=== PATIENT | female | born 1985 | race American Indian/Alaskan Native ===

== ENCOUNTER 2021-03-15 07:52 | Emergency (ER) | payer MEDICAID ==
[2021-03-15 08:00] VITALS: BP 115/85
[2021-03-15] MEDS ORDERED: dexAMETHasone 4 MG/ML VIAL IM STA (08:28)
[2021-03-15] MEDS ORDERED: KETOROLAC 60 MG/2 ML INJ IM ONE (08:28)
--- NOTE | 2021-03-15 08:37 | Emergency Department Report ---
ED General Adult HPI - General Chief complaint: High BP Stated complaint: BLOOD PRESSURE Time Seen by Provider: 03/15/21 08:08 Source: patient Mode of arrival: Ambulatory Limitations: No Limitations - History of Present Illness Initial comments: 35-year-old -Northern [place] female patient with history of hypertension presents with complaints of intermittent headaches x1 week and vaginal discharge for the past few days. She states the headache is a 6/10 in severity and that it resolves with ibuprofen however it continues to recur. Patient admits to recently starting phentermine for weight loss and that her headache started the same day. She denies any vision changes, numbness/tingling/weakness in her limbs, difficulty with speech/ambulation, confusion, memory loss, or history of CVA. Headache is not worst headache of her life. Patient reports some vaginal itching along with the discharge and denies dyspareunia. She admits to dysuria without hematuria or urinary frequency. No abnormal vaginal bleeding or abdominal pain per patient. - Related Data Previous Rx's Medication Instructions Recorded Last Taken Type Doxycycline Monohydrate 100 mg PO BID 7 Days #14 capsule 03/15/21 Unknown Rx Fluconazole [Diflucan TAB] 200 mg PO QDAY PRN #1 tablet 03/15/21 Unknown Rx Allergies Allergy/AdvReac Type Severity Reaction Status Date / Time codeine AdvReac Hives Verified 03/15/21 07:57 Penicillins AdvReac Hives Verified 03/15/21 07:57 ED Review of Systems ROS: Stated complaint: BLOOD PRESSURE Other details as noted in HPI Constitutional: denies: chills, fever Cardiovascular: denies: chest pain Gastrointestinal: denies: abdominal pain, nausea, vomiting Genitourinary: dysuria, discharge. denies: urgency, frequency, hematuria, abnormal menses, dyspareunia Skin: denies: change in color Neurological: headache. denies: numbness, paresthesias, abnormal gait ED Past Medical Hx - Medications Home Medications: Home Medications Medication Instructions Recorded Confirmed Last Taken Type Doxycycline Monohydrate 100 mg PO BID 7 Days #14 capsule 03/15/21 Unknown Rx Fluconazole [Diflucan TAB] 200 mg PO QDAY PRN #1 tablet 03/15/21 Unknown Rx ED Physical Exam - General Limitations: No Limitations General appearance: alert, in no apparent distress, obese - Head Head exam: Present: atraumatic, normocephalic - Eye Eye exam: Present: normal appearance - Respiratory Respiratory exam: Present: normal lung sounds bilaterally. Absent: respiratory distress - Cardiovascular Cardiovascular Exam: Present: regular rate, normal rhythm - GI/Abdominal GI/Abdominal exam: Present: soft. Absent: distended, tenderness - External exam: Present: normal external exam Speculum exam: Present: vaginal discharge (Copious, greenish), cervical discharge (Greenish), other (IUD strings noted in cervical os) Bi-manual exam: Absent: cervical motion tendernes (Cervix is friable) - Neurological Exam Neurological exam: Present: alert, oriented X3, CN II-XII intact, normal gait. Absent: motor sensory deficit - Expanded Neurological Exam Expanded Cerebellar function: Finger to Nose: Normal, [place]: Normal Motor strength exam: RUE: 4, LUE: 4, RLE: 4, LLE: 4 Best Eye Response ([place]): (4) open spontaneously Best Motor Response ([place]): (6) obeys commands Best Verbal Response ([place]): (5) oriented [place] Total: 15 - Psychiatric Psychiatric exam: Present: normal affect, normal mood - Skin Skin exam: Present: warm, dry, intact, normal color. Absent: rash ED Course Vital Signs 03/15/21 07:59 Temperature 98.4 F Pulse Rate 98 H Respiratory 18 Rate Blood Pressure 115/85 [Left] O2 Sat by Pulse 100 Oximetry ED Medical Decision Making - Lab Data Lab Results 03/15/21 Range/Units Unknown Urine Color Yu (Yellow) Urine Turbidity Cloudy (Clear) Urine pH 6.0 (5.0-7.0) Ur Specific [place] 1.026 (1.003-1.030) Urine Protein 100 mg/dl (Negative) mg/dL Urine Glucose (UA) Neg (Negative) mg/dL Urine Ketones Neg (Negative) mg/dL Urine Blood Sm (Negative) Urine Nitrite Neg (Negative) Urine Bilirubin Neg (Negative) Urine Urobilinogen 4.0 (<2.0) mg/dL Ur Leukocyte Esterase Lg (Negative) Urine WBC (Auto) > 182.0 H (0.0-6.0) /HPF Urine RBC (Auto) 51.0 (0.0-6.0) /HPF U Epithel Cells (Auto) 53.0 H (0-13.0) /HPF Urine WBC Clumps 2+ /HPF Urine Mucus 3+ /HPF Urine Yeast (Bud[place]) 2+ /HPF Urine HCG, Qual Negative (Negative) - Medical Decision Making 35-year-old -[place] female patient with history of hypertension pr esents with complaints of intermittent headaches x1 week and vaginal discharge for the past few days. She states the headache is a 6/10 in severity and that it resolves with ibuprofen however it continues to recur. Patient admits to recently starting phentermine for weight loss and that her headache started the same day. She denies any vision changes, numbness/tingling/weakness in her limbs, difficulty with speech/ambulation, confusion, memory loss, or history of CVA. Headache is not worst headache of her life. Patient reports some vaginal itching along with the discharge and denies dyspareunia. She admits to dysuria without hematuria or urinary frequency. No abnormal vaginal bleeding or abdominal pain per patient. Headache resolved with meds given here. Neuro exam is normal. Headache likely due to phentermine-patient to follow-up with PCP concerning this. UA shows greater than 182 WBCs. No CMT noted on exam. Wet prep positive for trichomonas. Patient given Flagyl. Will also cover for gonorrhea and chlamydia with Rocephin and doxycycline. Doxycycline also will cover possible UTI. Patient informed to follow-up outpatient with PCP, urgent care, or health department for further STI testing and also to refrain from sexual activity for 2 to 3 weeks. Patient to also inform her partner to get tested and treated. Discussed in detail signs and symptoms that should prompt immediate return to the ED with patient who verbalizes understanding. Critical care attestation.: If time is entered above; I have spent that time in minutes in the direct care of this critically ill patient, excluding procedure time. ED Disposition Clinical Impression: Headache, infection, trichomonal, UTI (urinary tract infection) Disposition: 01 HOME / SELF CARE / HOMELESS Is pt being admited?: No Condition: Stable Instructions: Trichomoniasis, Urinary Tract Infection, Adult, Tension Headache, Adult Prescriptions: Fluconazole [Diflucan TAB] 200 mg PO QDAY PRN #1 tablet PRN Reason: yeast infection Doxycycline Monohydrate 100 mg PO BID 7 Days #14 capsule Referrals: PRIMARY CARE, [Primary Care Provider] - 3-5 Days [facility] [Provider Group] - 3-5 Days ()
[2021-03-15 11:06] LABS: Bilirubin,Urine NEG (Negative); Blood,Urine SM (Negative); Color,Urine Amber (Yellow); Mucus,Urine 3+ /HPF
[2021-03-15 11:07] LABS: WBC,Urine > 182.0 /HPF (0.0-6.0)
[2021-03-15 11:10] LABS: HCG Qualitative,Urine Negative (Negative)
[2021-03-15] MEDS ORDERED: metroNIDAZOLE 500 MG TAB PO ONE (11:12)
[2021-03-15] MEDS ORDERED: LIDOCAINE-MPF (1%) 10 MG/1 ML VIAL 5 ML INFILTRATI ONE (11:16)
== END 2021-03-15 11:30 | disposition home or self-care (01) ==
LOC: ED 07:52
DX: R51.9 Headache, unspecified (principal); N73.9 Female pelvic inflammatory disease, unspecified; A59.9 Trichomoniasis, unspecified; N39.0 Urinary tract infection, site not specified; Z88.0 Allergy status to penicillin; Z88.5 Allergy status to narcotic agent
CPT/HCPCS: 81001; 81025; 87210; 96372; 99284; J0696; J1100; J1885; J3490

== ENCOUNTER 2021-04-03 09:06 | Emergency (ER) | payer MEDICAID ==
[2021-04-03 09:19] VITALS: BP 124/82
[2021-04-03] MEDS ORDERED: BUTALB/ACETAMINOPHEN/CAFFEINE TAB PO ONE (09:29)
--- NOTE | 2021-04-03 09:33 | Emergency Department Report ---
HPI - General Chief Complaint: High BP Time Seen by Provider: 04/03/21 09:23 - HPI HPI: 35-year-old -[place] female presents to the emergency department with complaint of a 5 to 6-day history of a headache. She says that it is bilateral frontal and temporal in location. She also feels like the muscles in the neck and trapezius feel tight, but she denies any actual neck stiffness. Patient says that she has a history of migraines diagnosed about 5 years ago but she is not on any medication for it. Patient was seen here about 3 weeks ago with complaint of intermittent headaches and uncontrolled blood pressure at that time. During that last visit the patient had a refill of her HCTZ and has been taking it compliantly. She does not have a primary care physician and she says that she recently moved to "this [facility]." She has some photophobia, but otherwise denies any vision change. She denies any fever, slurred speech, numbness or paresthesias, focal or lateralizing weakness, chest pain. She denies that this is the worst headache that she has ever had. Currently it is 7 out of 10 in intensity. No known aggravating or alleviating factors. ED Past Medical Hx - Medications Home Medications: Home Medications Medication Instructions Recorded Confirmed Last Taken Type Doxycycline Monohydrate 100 mg PO BID 7 Days #14 capsule 03/15/21 Unknown Rx Fluconazole [Diflucan TAB] 200 mg PO QDAY PRN #1 tablet 03/15/21 Unknown Rx traMADoL [Ultram 50 MG tab] 50 mg PO Q6HR PRN #8 tablet 04/03/21 Unknown Rx ED Review of Systems ROS: Stated complaint: HEADACHE Other details as noted in HPI Comment: All other systems reviewed and negative Constitutional: denies: chills, fever Eyes: other (Photophobia). denies: eye pain, vision change ENT: denies: ear pain, throat pain Respiratory: denies: cough, shortness of breath Cardiovascular: denies: chest pain, palpitations Gastrointestinal: denies: abdominal pain, vomiting Genitourinary: denies: dysuria, discharge Musculoskeletal: denies: back pain, arthralgia Skin: denies: rash, lesions Neurological: headache. denies: weakness, numbness, paresthesias Physical Exam - Physical Exam Vital Signs: Vital Signs 04/03/21 09:14 Temperature 98.1 F Pulse Rate 90 Respiratory 17 Rate Blood Pressure 124/82 O2 Sat by Pulse 99 Oximetry Physical Exam: GENERAL: The patient is well-developed well-nourished. HENT: Normocephalic. Atraumatic. Patient has moist mucous membranes. EYES: Extraocular motions are intact. No nystagmus. NECK: Supple. Trachea is midline. CHEST/LUNGS: Clear to auscultation. There is no respiratory distress noted. HEART/CARDIOVASCULAR: Regular. There is no tachycardia. There is no murmur. ABDOMEN: Abdomen is soft, nontender. Patient has normal bowel sounds. SKIN: Skin is warm and dry. NEURO: The patient is awake, alert, and oriented. The patient is cooperative. The patient has no focal neurologic deficits. Normal speech. Cranial nerves II through XII grossly intact. MUSCULOSKELETAL: There is no tenderness or deformity. There is no limitation range of motion. ED Course Vital Signs 04/03/21 09:14 Temperature 98.1 F Pulse Rate 90 Respiratory 17 Rate Blood Pressure 124/82 O2 Sat by Pulse 99 Oximetry ED Medical Decision Making - Radiology Data Radiology results: report reviewed CT head/brain wo con INDICATION: headaches. TECHNIQUE: Routine CT head. All CT scans at this location are performed using CT dose reduction for ALARA by means of automated exposure control. COMPARISON: None. FINDINGS: Intracranial: Vigil- white matter differentiation is maintained. No intracranial hemorrhage. No extra axial collection. No hydrocephalus. No herniation. Sinuses: Paranasal sinuses and mastoid air cells are essentially clear. Orbits: Globes are intact. Calvarium: No acute fracture. IMPRESSION: 1. No acute intracranial abnormality. - Medical Decision Making Patient presents with a 5 to 6-day history of a headache. On examination she does not have any focal, motor or sensory deficits and her cranial structures are intact. No meningismus signs. Patient's vital signs are reassuring occluding being afebrile. CT scan of the head without contrast does not show any hemorrhage, large vessel occlusion, edema, hydrocephalus, or any other acute process. Patient was given a dose of Toradol and a tramadol. Upon reevaluation she is f eeling greatly improved. She appears safe for discharge home at this time and has been given an outpatient referral for primary care and neurology. She will return to the ER with any worsening of her symptoms or with any acute distress. Critical Care Time: No Critical care attestation.: If time is entered above; I have spent that time in minutes in the direct care of this critically ill patient, excluding procedure time. ED Disposition Clinical Impression: Headache Qualifiers: Headache type: unspecified Headache chronicity pattern: unspecified pattern Intractability: not intractable Qualified Code(s): R51.9 - Headache, unspecified Disposition: 01 HOME / SELF CARE / HOMELESS Is pt being admited?: No Condition: Stable Instructions: General Headache Without Cause Additional Instructions: Please follow-up with a primary care physician in the next few days. I have giv en you a referral for a local primary care physician, Dr. Cole, and a primary care clinic, [facility]. I am giving you a referral for a local neurologist, Dr. Harris, to follow-up re garding headaches. You have been prescribed a medication that is sedating and therefore should not be taken prior to driving, working, and responsible for children and in no way should be mixed with alcohol of any quantity. Return to the emergency department with any worsening of your symptoms, new or concerning symptoms not addressed during this current emergency department visit, or with any acute distress. Prescriptions: traMADoL [Ultram 50 MG tab] 50 mg PO Q6HR PRN #8 tablet PRN Reason: Pain Referrals: CHATO ASHLEY MD [Primary Care Provider] - 2-3 Days MANUEL COLE MD [Staff Physician] - 2-3 Days INGRID HARRIS MD [Referring] - 2-3 Days [facility] [Provider Group] - 2-3 Days Time of Disposition: 12:50
--- NOTE | 2021-04-03 10:08 | Cat Scan Report ---
CT head/brain wo con INDICATION: headaches. TECHNIQUE: Routine CT head. All CT scans at this location are performed using CT dose reduction for A SABRINA by means of automated exposure control. COMPARISON: None. FINDINGS: Intracranial: Vigil-white matter differentiation is maintained. No intracranial hemorrhage. No extra a xial collection. No hydrocephalus. No herniation. Sinuses: Paranasal sinuses and mastoid air cells are essentially clear. Orbits: Globes are intact. Calvarium: No acute fracture. IMPRESSION: 1. No acute intracranial abnormality. Signer Name: Ed Prakash MD Signed: 04/03/2021 10:03 AM Workstation Name: [id number]
[2021-04-03] MEDS ORDERED: KETOROLAC 30 MG/1 ML INJ IM ONE (10:37)
[2021-04-03] MEDS ORDERED: traMADol 50 MG TAB PO ONE (11:45)
== END 2021-04-03 13:04 | disposition home or self-care (01) ==
LOC: ED 09:06
DX: R51.9 Headache, unspecified (principal)
CPT/HCPCS: 70450; 96372; 99283; J1885

== ENCOUNTER 2021-04-19 18:26 | Emergency (ER) | payer MEDICAID | END 2021-04-20 05:15 | LOC: ED 18:26 | DX: Z00.00 Encounter for general adult medical examination without abnormal findings (principal); Z53.21 Procedure and treatment not carried out due to patient leaving prior to being seen by health care provider ==

== ENCOUNTER 2021-06-20 21:17 | Emergency (ER) | payer MEDICAID ==
[2021-06-21 02:31] VITALS: BP 131/95
== END 2021-06-21 02:35 | disposition left against medical advice (07) ==
LOC: ED 21:17
DX: R68.89 Other general symptoms and signs (principal); Z53.21 Procedure and treatment not carried out due to patient leaving prior to being seen by health care provider